=== PATIENT | female | born 1975 | race Caucasian/White ===

== ENCOUNTER 2020-08-09 06:33 | Day surgery (SDC) | payer OTHER ==
[2020-08-02 14:57] VITALS: BMI 31.9
[2020-08-09] MEDS ORDERED: EPINEPHrine/PF 1 MG/1 ML (1:1,000) AMPULE ONE (07:20)
[2020-08-09] MEDS ORDERED: SODIUM BICARBONATE 8.4% 50 MEQ/50 ML VIAL ONE (07:21)
[2020-08-09] MEDS ORDERED: LIDOCAINE 1%/EPI 1:100000 (20 ML MULTI DOSE VIAL) ONE (07:21)
[2020-08-09] MEDS ORDERED: BUPIVACAINE HCL 100 ML ONE (07:21)
[2020-08-09] MEDS ORDERED: LIDOCAINE HCL 1%, 10 MG/ML (20ML VIAL) ONE (07:21)
[2020-08-09] MEDS ORDERED: LIDOCAINE HCL/PF 2% SDV 5ML VIAL ONE (07:38)
[2020-08-09] MEDS ORDERED: MIDAZOLAM HCL 2 MG/2 ML SINGLE DOSE VIAL ONE ×2 (07:38)
[2020-08-09] MEDS ORDERED: ROCURONIUM BROMIDE 50 MG/5 ML SYRINGE ONE ×2 (07:38→11:15)
[2020-08-09] MEDS ORDERED: fentaNYL CITRATE 250 MCG/5 ML VIAL ONE (07:38)
[2020-08-09] MEDS ORDERED: PROPOFOL 20 ML ONE ×4 (07:38→11:27)
[2020-08-09] MEDS ORDERED: SCOPOLAMINE HYDROBROMIDE 1 PATCH PATCH.TD72 ONE (08:10)
[2020-08-09] MEDS ORDERED: DEXAMETHASONE SOD PHOSPHATE 4 MG/1 ML VIAL ONE (08:31)
[2020-08-09] MEDS ORDERED: ONDANSETRON 4 MG/2 ML VIAL ONE ×2 (08:31→13:21)
[2020-08-09] MEDS ORDERED: ceFAZolin SODIUM 1 GM VIAL ONE ×2 (08:40→12:33)
[2020-08-09] MEDS ORDERED: SODIUM CHLORIDE 0.9% P/F 10 ML VIAL IJ ONE (08:51)
[2020-08-09] MEDS ORDERED: BUPIVACAINE LIPOSOME/PF (EXPAREL) 266 MG/20 ML VIAL ONE (08:51)
[2020-08-09] MEDS ORDERED: KETAMINE HCL 200 MG/20 ML VIAL ONE (08:58)
[2020-08-09] MEDS ORDERED: HYDROmorphone HCL/PF 1 MG/ML VIAL ONE ×3 (08:59→11:03)
[2020-08-09] MEDS ORDERED: ACETAMINOPHEN INJECTION 100 ML IVPB ONE ×2 (10:04→15:26)
[2020-08-09] MEDS ORDERED: GUM MASTIC/STORAX/MSAL/ALCOHOL 1 DRP DROPSBTL MC ONE (13:17)
[2020-08-09] MEDS ORDERED: NEOSTIGMINE METHYLSULFATE 0.5 MG/1 ML - 10 ML MDV ONE (13:20)
[2020-08-09] MEDS ORDERED: GLYCOPYRROLATE 0.2 MG/1 ML VIAL ONE (13:20)
[2020-08-09] MEDS: KETOROLAC TROMETHAMINE 30 MG/1 ML VIAL IVPUSH PRN (13:50)
[2020-08-09] MEDS ORDERED: KETOROLAC TROMETHAMINE 30 MG/1 ML VIAL ONE (13:53)
[2020-08-09] MEDS ORDERED: ONDANSETRON 4 MG/2 ML VIAL IVPUSH PRN ×2 (13:55→13:56)
[2020-08-09] MEDS ORDERED: HYDROmorphone *PCA* 10MG/50ML DISP.SYRIN ONE (13:56)
[2020-08-09] MEDS ORDERED: diazePAM 5 MG TABLET PO PRN (13:57)
[2020-08-09] MEDS ORDERED: clonazePAM 0.5 MG TABLET PO PRN (13:59)
[2020-08-09] MEDS ORDERED: CELECOXIB 200 MG CAPSULE PO PRN (13:59)
[2020-08-09] MEDS ORDERED: SUMAtriptan SUCCINATE 25 MG TABLET PO PRN (13:59)
[2020-08-09] MEDS ORDERED: HYDROmorphone *PCA* 10MG/50ML DISP.SYRIN PCA SCH (14:00)
[2020-08-09] MEDS ORDERED: LACTATED RINGERS SOLUTION 1,000 ML IV SCH (14:00)
[2020-08-09] MEDS ORDERED: PCA PUMP NR ONE ×2 (14:15→21:16)
[2020-08-09] MEDS ORDERED: diazePAM 5 MG TABLET ONE (15:00)
[2020-08-09] MEDS: diazePAM 5 MG TABLET PO PRN ×2 (15:00→22:49)
[2020-08-09] MEDS: ACETAMINOPHEN 1000 MG/100 ML VIAL (NON FORMULARY) IVPB SCH ×3 (15:30→20:00)
[2020-08-09] MEDS: LACTATED RINGERS SOLUTION 1,000 ML IV SCH (16:13)
[2020-08-09] MEDS: CEFAZOLIN 1 GM/D5W 1 GM/50 ML BAG IVPB SCH (18:16)
[2020-08-10] MEDS: CEFAZOLIN 1 GM/D5W 1 GM/50 ML BAG IVPB SCH ×3 (00:10→12:59)
[2020-08-10] MEDS: ACETAMINOPHEN 1000 MG/100 ML VIAL (NON FORMULARY) IVPB SCH ×2 (01:52→07:48)
[2020-08-10] MEDS: diazePAM 5 MG TABLET PO PRN (07:47)
[2020-08-10] MEDS ORDERED: ENOXAPARIN NA (PORCINE) 40 MG/0.4 ML DISP.SYRIN SQ SCH (08:00)
[2020-08-10] MEDS: KETOROLAC TROMETHAMINE 30 MG/1 ML VIAL IVPUSH PRN ×2 (08:30→13:43)
[2020-08-10] MEDS ORDERED: PCA PUMP NR ONE ×2 (08:47→09:10)
[2020-08-10] MEDS ORDERED: oxyCODONE HCL 5 MG TABLET PO PRN (08:51)
[2020-08-10] MEDS: oxyCODONE HCL 5 MG TABLET PO PRN ×2 (09:41→15:45)
[2020-08-10] MEDS ORDERED: PATIENT'S OWN MEDICATION (NON-FORMULARY) (Linaclotide [Linzess] 145 MCG Capsule) PO SCH (10:00)
[2020-08-10] MEDS ORDERED: ACETAMINOPHEN 325 MG TABLET (FP) PO PRN (14:00)
[2020-08-10 14:09] VITALS: BP 111/66; PULSE 91; TEMP 99.2
[2020-08-10] MEDS: LACTATED RINGERS SOLUTION 1,000 ML IV SCH (15:35)
== END 2020-08-10 16:03 | disposition home or self-care (01) ==
LOC: FASUSAT 06:33 → FM/S 15:55 → FASUSAT 08-10 16:03
PROVIDERS: ATTEND Surgery Plastic and Reconstructive Surgery
PROC: 0H0V07Z Alteration of Bilateral Breast with Autologous Tissue Substitute, Open Approach (ICD-10-PCS; principal; 2020-08-09 08:48)
PROC: 0J080ZZ Alteration of Abdomen Subcutaneous Tissue and Fascia, Open Approach (ICD-10-PCS; 2020-08-09 08:48)
PROC: 0HBEXZZ Excision of Left Lower Arm Skin, External Approach (ICD-10-PCS; 2020-08-09 08:48)
DX: N64.81 Ptosis of breast (principal); E88.1 Lipodystrophy, not elsewhere classified; Z98.84 Bariatric surgery status; R63.4 Abnormal weight loss; M71.322 Other bursal cyst, left elbow
CPT/HCPCS: 81025; 88304-TC; 94760; J0131